=== PATIENT | male | born 1990 | race Asian ===

== ENCOUNTER 2024-10-10 06:10 | Outpatient (REF) | payer BC, SELFPAY ==
--- NOTE | ~2024-10-10 | US_ITS ---
EXAMINATION: US THYROID CLINICAL INFORMATION: Hypothyroidism COMPARISON: None available. TECHNIQUE: Linear transducer grayscale and color Doppler examination with attention to the region of the thyroid. FINDINGS: SIZE: Measurements of the thyroid lobes and nodules are given in sagittal, anteroposterior and transverse dimensions respectively. Right Thyroid Lobe: 4.9 x 1.7 x 2 cm, volume 8.7 mL. Parenchyma: The gland echotexture is heterogeneous. Thyroid vascularity is increased. Left Thyroid Lobe: 5.1 x 1.4 x 1.6 cm, volume 5.9 mL. Parenchyma: The gland echotexture is heterogeneous. Thyroid vascularity is increased. Isthmus: 0.3 cm in maximum AP dimension. Estimated total number of nodules greater than or equal to 1 cm: 0. [employer] Central Office nodules are described as follows: NODES: No lymphadenopathy is seen in the tissue surrounding the thyroid gland. 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 No ultrasound evidence of focal thyroid nodule. Electronically signed by: Latasha Morgan MD 10/12/2024 11:33 AM EST
--- OUTSIDE RECORDS SUMMARY | 2024-10-10 06:12 | XMS_ITS | Data Portability ---
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 All new labs and diagnostic xrays reviewed. Physical exam performed. Decision to continue FU made. 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 All new labs and diagnostic xrays reviewed. Physical exam performed. Decision to continue FU made. Diagnostic tests ordered [email or web address] Not available 09/05/2024 16:08:31 Plan of Treatment Reminders Order Date Submit Date Provider Last Modified By Organization Details Last Modified Time Details Appointments None recorded. Lab semen analysis 2023 [email or web address] [facility], [address] [place], [address], 15:19:27 Referral None recorded. Procedures None recorded. Surgeries None recorded. Imaging US, duplex, scrotum, limited 2023 024 [email or web address] Not available 16:18:10 Medication Orders None recorded. Patient TargetsNo targets recorded. Patient Instructions Encounter Date Encounter Id Patient Instructions Last Modified By Organization Details Last Modified Time 08/02/2024 [id number] varicocele repair: before your surgery [email or web address] Not available 08/02/2024 13:40:37 08/02/2024 [id number] varicocele repair: before your surgery [email or web address] Not available 08/02/2024 12:17:55 I spent a total of 45 minutes on the date of encounter, which included review of previous test results, reviewing previous history, performing medical appropriate exam, counseling the patient, ordering medications, communicating with the care team, documenting clinical information in the EMR, independently interpreting results. [email or web address] Not available 08/02/2024 12:55:08 09/05/2024 [id number] varicocele repair: before your surgery [email or web address] Not available 09/05/2024 16:08:32 I spent a total of 45 minutes on the date of encounter, which included review of previous test results, reviewing previous history, performing medical appropriate exam, counseling the patient, ordering medications, communicating with the care team, documenting clinical information in the EMR, independently interpreting results. [email or web address] Not available 09/05/2024 13:44:52 Reason for Referral None Reported. Results Created Date Observation Date Name Description Value Unit Range Abnormal Flag Note LastModifiedBy Organization Detail LastModifiedTime 08/02/20 24 07/15/2023 uatumn seth/nazanin yap tic resul t No observ ation record ed. [email or web address] Not Available 2023 11:43:29 Result Notes None recorded. 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 12:14:15 Primary male infertility 605295190 Active 2023 Bubba Cruz MD [address] [place] [address], [phone], [facility] 12:15:41 Varicocele 45004811 Active 2023 Bubba Cruz MD [address] [place] [address], [phone], [facility] 12:16:06 Problem Notes None recorded. Procedures Surgical History Date Name Laterality Status Provider Name and Address Organization Details Recorded Time 08/02/20 Ultrasound - Scrotum completed Bubba Cruz MD [address] [place] [address], [phone], [facility] 08/02/2024 13:40:19 Imaging Results Imaging Date Name Status LastModified by Organiz ation Details LastModified Time 07/15/2023 imaging/diag nostic result completed [email or web address] Information not available 08/12/2024 11:43:29 Procedure Notes None recorded. Medical Equipment None Reported. Allergies No known drug allergies Medications Name Sig Start Date Stop Date Status Note LastModified by Organization Details LastModified Time levothyroxine 25 mcg tablet active Not Available Not Availabl e Not Available lidocaine-hydro cortisone-aloe vera 2.8 %-0.55 % rectal gel 08/02 completed Not Available Not Available Not Available GaviLyte-G 236 gram-22.74 gram-6.74 gram-5.86 gram oral solution 08/02 completed Not Available Not Available Not Available Vitals Date Recorded Body height Body mass index (BMI) Body weight Provider Name and Address Organization Details Last Updated DateTime 08/02/2024 165.1 cm 0.3 kg/m2 907.18 [address] Dafne Luna [facility] 08/02/2024 11:26:41 Date Recorded Body height Body mass index (BMI) Body weight Provider Name and Address Organization Details Last Updated DateTime 09/05/2024 165.1 cm 24.8 kg/m2 27696.26 g Pamella Perla [facility] 09/05/2024 15:41:46 Social History Question Answer Notes LastModified by Organizat ion Details LastModified Time Tobacco Smoking Status Never Smoker Dafne garzon [facility] 08/02/2024 11:26:48 Do You Have An Advance Directive? No [email or web address] Information not available 08/02/2024 Are You Blind Or Do You Have Difficulty Seeing? No [email or web address] Information not available 08/02/2024 Is Blood Transfusion Acceptable In An Emergency? Yes [email or web address] Information not available 08/02/2024 What Is Your Level Of Caffeine Consumption? Occasional [email or web address] Information not available 08/02/2024 Are You Currently Employed? Yes [email or web address] Information not available 08/02/2024 Are You Deaf Or Do You Have Serious Difficulty Hearing? No [email or web address] Information not available 08/02/2024 What Type Of Diet Are You Following? 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 Right Information not available 08/02/2024 What Was The Date Of Your Most Recent Tobacco Screening? 09/05/2024 [email or web address] Information not available 09/05/2024 Do You Have Any Pets? No [email or web address] Information not available 08/02/2024 What Is Your Relationship Status? Information not available 08/02/2024 Do You Feel Stressed (tense, Restless, Nervous, Or Anxious, Or Unable To Sleep At Night)? [id number] Information not available 08/02/2024 Do You Use Any Illicit Or Recreational Drugs? No [email or web address] Information not available 08/02/2024 Do You Or Have You Ever Used Any Other Forms Of Tobacco Or Nicotine? No [email or web address] Information not available 08/02/2024 Sex: Unknown Functional Status Question Answer Note LastModified by Organizat ion Details LastModified Time Are you able to care for yourself? Yes [email or web address] Information not available 08/02/2024 What is your exercise level? Occasional Information not available 08/02/2024 Mental Status None recorded. Family History Nothing Reported. Medical History Condition Response Other Disease(s): Y Past Encounters Encounter ID Performer Location Encounter Start Date Encounter Closed Date Diagnosis/Indication Diagnosis SNOMED-CT Code Diagnosis ICD10 Code [id number] Royer Cruz MD [facility] [address] [address] 08/02/2024 11:06:08 08/02/2024 12:24:25 Primary male infertility 426739262 N46.9 Infertilit y due to azoospermia 174888296 N46.01 Varicocele 40264420 I86. 1 [id number] Royer Cruz MD [facility] [address] [address] 08/02/2024 12:29:31 08/02/2024 13:17:41 Primary male infertility 220925509 N46.9 Infertilit y due to azoospermia 873227676 N46.01 Varicocele 11512152 I86. 1 [id number] Royer Cruz MD [facility] [address] [address] 09/05/2024 15:31:27 09/05/2024 16:14:10 Primary male infertility 468589674 N46.9 Infertilit y due to azoospermia 999212782 N46.01 Varicocele 88983727 I86. 1 Health Concerns Section Related Observation LastModified by Organization Detai ls LastModified Time None Recorded Concern Status LastModified by Organization Details LastModified Time None Recorded Advance Directives Directive N: Payers Encounter Date Sequence Insurance Name Policy Number Policy Gray Covered Member ID Gray Member ID Guarantor Name 08/02/2024 1 [place] [id number] Sathish Munusamy [id number] Sathish Munusamy 08/02/2024 1 [place] [id number] Sathish Munusamy [id number] Sathish Munusamy 09/05/2024 1 [place] [id number] Sathish Munusamy [id number] Sathish Munusamy Notes Date Note Type Note Provider Name and Address Organization Details Recorded Time 4 text/htm l Patient has been 4 yrs, trying for2 yrs. Libido, Erection, Ejaculation and orgasm normal. Sexual frequency is normal. Patient is aware of Ovulation cycle. Denies Testalgia, scrotal trauma or surgery, Testicular urinary or sexual infection. No H/O varicocele, hydrocele or hernia. No Gynecomastia, excessive obesity. No use of external lubricants. No H/O Mumps, Chemotherapy or testis radiation exposure. Does not wear nylon underwears or sit in hot tub. has been evaluated with her boring mill set up operator. Her ovulation, tubal patency and hormonal status is normal. He has never used exogenous testosterone or body building steroids. No regular use of recreational drugs, smoking or excess alcohol intake. No familial fertility or neuroendocrinological issues. No previous treatment for infertility He works in [place] in [employer] in [employer] and done PHD in [facility] [employer] His semen analysis done in [place] last year showed azoospermia. The sperm volume was 1 cc liquefaction was normal and there was no evidence of any infection. His FSH and LH were normal and his testosterone was normal. Scrotal ultrasound showed mild ectasia of the epididymal tubules but otherwise the blood flow to the testis was normal Bubba Cruz MD [address] [place] [address], [phone], [facility] 08/02/2024 12:55:29 4 text/htm l Patient has been 4 yrs, trying for2 yrs. Libido, Erection, Ejaculation and orgasm normal. Sexual frequency is normal. Patient is aware of Ovulation cycle. Denies Testalgia, scrotal trauma or surgery, Testicular urinary or sexual infection. No H/O varicocele, hydrocele or hernia. No Gynecomastia, excessive obesity. No use of external lubricants. No H/O Mumps, Chemotherapy or testis radiation exposure. Does not wear nylon underwears or sit in hot tub. has been evaluated with her boring mill set up operator. Her ovulation, tubal patency and hormonal status is normal. He has never used exogenous testosterone or body building steroids. No regular use of recreational drugs, smoking or excess alcohol intake. No familial fertility or neuroendocrinological issues. No previous treatment for infertility He works in [place] in [employer] and done PHD in [employer] His semen analysis done in [place] last year showed azoospermia. The sperm volume was 1 cc liquefaction was normal and there was no evidence of any infection.Repeat semen analysis this year Also shows his aspermia His FSH and LH were normal and his testosterone was normal. Scrotal ultrasound showed mild ectasia of the epididymal tubules but otherwise the blood flow to the testis was normal Bubba Crzu MD [address] [place] [address], [phone], [facility]. 09/05/2024 16:09:01
--- OUTSIDE RECORDS SUMMARY | 2024-10-10 06:12 | XMS_ITS | Continuity of Care Document ---
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 All new labs and diagnostic xrays reviewed. Physical exam performed. Decision to continue FU made. Diagnostic tests ordered [email or web address] Not available 09/05/2024 16:08:31 Plan of Treatment Reminders Order Date Submit Date Provider Last Modified By Organization Details Last Modified Time Details Appointments None record ed. Lab None record ed. Referral None record ed. Procedures None record ed. Surgeries None record ed. Imaging None record ed. Medication Orders None record ed. Patient TargetsNo targets recorded. Patient Instructions Encounter Date Encounter Id Patient Instructions Last Modified By Organization Details Last Modified Time 09/05/2024 [id number] varicocele repair: before your surgery [email or web address] Not available 09/05/2024 16:08:32 I spent a total of 45 minutes on the date of encounter, which included review of previous test results, reviewing previous history, performing medical appropriate exam, counseling the patient, ordering medications, communicating with the care team, documenting clinical information in the EMR, independently interpreting results. [email or web address] Not available 09/05/2024 13:44:52 Reason for Referral None Reported. 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 Procedures Surgical History Date Name Laterality Status Provider Name and Address Organization Details Recorded Time 08/02/20 Ultrasound - Scrotum completed Bubba Cruz MD [address] [place] [address], [phone], [facility] 08/02/2024 13:40:19 Imaging Results None recorded. Procedure Notes None recorded. Medical Equipment None [...] Updated DateTime 09/05/2024 165.1 cm 24.8 kg/m2 11844.26 g Pamella Duncan [facility] 09/05/2024 15:41:46 Social History Question Answer Notes LastModified by Organizat ion Details LastModified Time Tobacco Smoking Status Never Smoker Dafne garzon [facility] 08/02/2024 11:26:48 Do You Have An Advance Directive? No [email or web address] Information not available 08/02/2024 Are You Blind Or Do You Have Difficulty Seeing? No Information not available 08/02/2024 Is Blood Transfusion Acceptable In An Emergency? Yes [email or web address] Information not available 08/02/2024 What Is Your Level Of Caffeine Consumption? Occasional [email or web address] Information not available 08/02/2024 Are You Currently Employed? Yes [email or web address] Information not available 08/02/2024 Are You Deaf Or Do You Have Serious Difficulty Hearing? No [email or web address] Information not available 08/02/2024 What Type Of Diet Are You Following? 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 Right [email or web address] Information not available 08/02/2024 What Was The Date Of Your Most Recent Tobacco Screening? 09/05/2024 [email or web address] Information not available 09/05/2024 Do You Have Any Pets? No Information not available 08/02/2024 What Is Your Relationship Status? [email or web address] Information not available 08/02/2024 Do You Feel Stressed (tense, Restless, Nervous, Or Anxious, Or Unable To Sleep At Night)? [id number] [email or web address] Information not available 08/02/2024 Do You Use Any Illicit Or Recreational Drugs? No [email or web address] Information not available 08/02/2024 Do You Or Have You Ever Used Any Other Forms Of Tobacco Or Nicotine? No Information not available 08/02/2024 Sex: Unknown Functional Status Question Answer Note LastModified by Organizat ion Details LastModified Time Are you able to care for yourself? Yes [email or web address] Information not available 08/02/2024 What is your exercise level? Occasional [email or web address] Information not available 08/02/2024 Mental Status None recorded. Family History Nothing Reported. Medical History Condition Response Other Disease(s): Y Past Encounters Encounter ID Performer Location Encounter Start Date Encounter Closed Date Diagnosis/Indication Diagnosis SNOMED-CT Code Diagnosis ICD10 Code [id number] Royer Cruz MD [facility] [address] [facility] [place] [address] [place] [address] 09/05/2024 15:31:27 09/05/2024 16:14:10 Primary male infertility 280067328 N46.9 Infertilit y due to azoospermia 146653377 N46.01 Varicocele 61380322 I86. 1 Health Concerns Section Related Observation LastModified by Organization Detai ls LastModified Time None Recorded Concern Status LastModified by Organization Details LastModified Time None Recorded Payers Encounter Date Sequence Insurance Name Policy Number Policy Gray Covered Member ID Gray Member ID Guarantor Name 09/05/2024 1 [place] [id number] Sathish Sims [id number] Sathish Sims Notes Date Note Type Note Provider Name [...] hot tub. has been evaluated with her scaling machine operator. Her ovulation, tubal patency and hormonal status is normal. He has never used exogenous testosterone or body building steroids. No regular use of recreational drugs, smoking or excess alcohol intake. No familial fertility or neuroendocrinological issues. 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 The sperm volume was 1 cc liquefaction was normal and there was no evidence of any infection.Repeat semen analysis this year Also shows his aspermia His FSH and LH were normal and his testosterone was normal. Scrotal ultrasound showed mild ectasia of the epididymal tubules but otherwise the blood flow to the testis was normal Bubba Cruz MD [address] [place] [address], [phone], [facility]. 09/05/2024 16:09:01
--- OUTSIDE RECORDS SUMMARY | 2024-10-10 06:12 | XMS_ITS | Continuity of Care Document ---
Author Organization [facility] [employer] [facility] Address [address] [facility] [address] [place] [address] Care Team Providers Care Phlebotomy Specialist Name Role Phone MIKI BAILEY Primary Care Provider BUBBA CRUZ Urologist [phone] Assessment No assessment recorded. Plan of Treatment Reminders Order Date Submit [...] By Organization Details Last Modified Time 08/02/2024 [id number] varicocele repair: before your surgery [email or web address] Not available 08/02/2024 13:40:37 Reason for Referral None Reported. Results Created Date Observation Date Name Description Value Unit Range Abnormal Flag Note LastModifiedBy Organization Detail LastModifiedTime 08/02/20 24 07/15/2023 imagi ng/di agnos tic resul t No observ ation record ed. Not Available 2023 11:43:29 Result Notes None recorded. 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 12:14:15 Primary male infertility 680761927 Active 2023 Bubba Cruz MD [address] [place], [address], [facility] 12:15:41 Varicocele 64891429 Active 2023 Bubba Cruz MD [address] [place], [address], [facility] 12:16:06 Problem Notes None recorded. Procedures Surgical History Date Name Laterality Status Provider Name and Address Organization Details Recorded Time 08/02/20 Ultrasound - Scrotum completed Bubba Cruz MD [address] [place] [address], [phone], [facility] 08/02/2024 13:40:19 Imaging Results None recorded. [...] cm 0.3 kg/m2 907.18 g Dafne Luna [facility] 08/02/2024 11:26:41 Social History Question Answer Notes LastModified by Organizat ion Details LastModified Time Tobacco Smoking Status Never Smoker Dafne Luna [facility] 08/02/2024 11:26:48 Do You Have An Advance Directive? No [email or web address] Information not available 08/02/2024 Are You Blind Or Do You Have Difficulty Seeing? No [email or web address] Information not available 08/02/2024 Is Blood Transfusion Acceptable In An Emergency? Yes [email or web address] Information not available 08/02/2024 What Is Your Level Of Caffeine Consumption? Occasional [email or web address] Information not available 08/02/2024 Are You Currently Employed? Yes [email or web address] Information not available 08/02/2024 Are You Deaf Or Do You Have Serious Difficulty Hearing? No [email or web address] Information not available 08/02/2024 What Type Of Diet Are You Following? 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 Right [email or web address] Information not available 08/02/2024 What Was The Date Of Your Most Recent Tobacco Screening? 09/05/2024 [email or web address] Information not available 09/05/2024 Do You Have Any Pets? No [email or web address] Information not available 08/02/2024 What Is Your Relationship Status? Information not available 08/02/2024 Do You Feel Stressed (tense, Restless, Nervous, Or Anxious, Or Unable To Sleep At Night)? [id number] [email or web address] Information not available 08/02/2024 Do You Use Any Illicit Or Recreational Drugs? No [email or web address] Information not available 08/02/2024 Do You Or Have You Ever Used Any Other Forms Of Tobacco Or Nicotine? No [email or web address] Information not available 08/02/2024 Sex: Unknown Functional Status Question Answer Note LastModified by Organizat ion Details LastModified Time Are you able to care for yourself? Yes Information not available 08/02/2024 What is your exercise level? Occasional Information not available 08/02/2024 Mental Status None recorded. Family History Nothing Reported. Medical History Condition Response Other Disease(s): Y Past Encounters Encounter ID Performer Location Encounter Start Date Encounter Closed Date Diagnosis/Indication Diagnosis SNOMED-CT Code Diagnosis ICD10 Code [id number] Royer Cruz MD [facility] [address] [address] 08/02/2024 11:06:08 08/02/2024 12:24:25 Primary male infertility 267246809 N46.9 Infertilit y due to azoospermia 491142560 N46.01 Varicocele 56101974 I86. 1 [id number] Royer Cruz MD [facility] [address] [address] 08/02/2024 12:29:31 08/02/2024 13:17:41 Primary male infertility 525409725 N46.9 Infertilit y due to azoospermia 210861612 N46.01 Varicocele 04901816 I86. 1 Health Concerns Section Related Observation LastModified by Organization Detai ls LastModified Time None Recorded Concern Status LastModified by Organization Details LastModified Time None Recorded Payers Encounter Date Sequence Insurance Name Policy Number Policy Gray Covered Member ID Gray Member ID Guarantor Name 08/02/2024 1 [place]: BERNARDO (PPO) [id number] [id number] Notes Date Note Type Note Provider Name [...] hot tub. has been evaluated with her senior accounting specialist. Her ovulation, tubal patency and hormonal status is normal. He has never used exogenous testosterone or body building steroids. No regular use of recreational drugs, smoking or excess alcohol intake. No familial fertility or neuroendocrinological issues. 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 The sperm volume was 1 cc liquefaction was normal and there was no evidence of any infection. His FSH and LH were normal and his testosterone was normal. Scrotal ultrasound showed mild ectasia of the epididymal tubules but otherwise the blood flow to the testis was normal Bubba Cruz MD [address] [place] [address], [phone], [facility]. 08/02/2024 12:55:29
--- OUTSIDE RECORDS SUMMARY | 2024-10-10 06:12 | XMS_ITS | Continuity of Care Document ---
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 All new labs and diagnostic xrays reviewed. Physical exam performed. Decision to continue FU made. Diagnostic tests ordered [email or web address] Not available 08/02/2024 12:15:41 Plan of Treatment Reminders Order Date Submit Date Provider Last Modified By Organization Details Last Modified Time Details Appointments None recorded. Lab semen analysis 2023 024 [email or web address] [facility], [address] [place], [address], 15:19:27 Referral None recorded. Procedures None recorded. Surgeries None recorded. Imaging US, duplex, scrotum, limited 2023 024 [email or web address] Not available 16:18:10 Medication Orders None recorded. Patient TargetsNo targets recorded. Patient Instructions Encounter Date Encounter Id Patient Instructions Last Modified By Organization Details Last Modified Time 08/02/2024 [id number] varicocele repair: before your surgery [email or web address] Not available 08/02/2024 12:17:55 I spent a total of 45 minutes on the date of encounter, which included review of previous test results, reviewing previous history, performing medical appropriate exam, counseling the patient, ordering medications, communicating with the care team, documenting clinical information in the EMR, independently interpreting results. [email or web address] Not available 08/02/2024 12:55:08 Reason for Referral None Reported. Results Created Date Observation Date Name Description Value Unit Range Abnormal Flag Note LastModifiedBy Organization Detail LastModifiedTime 08/02/20 24 07/15/2023 imagi ng/di proos tic resul t No observ ation record ed. [email or web address] Not Available 2023 11:43:29 Result Notes None recorded. 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 4 12:15:41 Varicocele 33957594 Active 2023 Bubba Cruz MD [address] [place] [address], [address], [facility] [employer] [facility] 12:16:06 Problem Notes None recorded. Procedures Surgical History Date Name Laterality Status Provider Name and Address Organization Details Recorded Time 08/02/20 24 Ultrasound - Scrotum completed Bubba Cruz MD [address] [place] [address], [phone], [facility] [employer] 08/02/2024 13:40:19 Imaging Results None recorded. Procedure [...] cm 0.3 kg/m2 907.18 g [facility] 08/02/2024 11:26:41 Social History Question Answer Notes LastModified by Organizat ion Details LastModified Time Tobacco Smoking Status Never Smoker Dafne Luna [facility] 08/02/2024 11:26:48 Do You Have An Advance Directive? No [email or web address] Information not available 08/02/2024 Are You Blind Or Do You Have Difficulty Seeing? No [email or web address] Information not available 08/02/2024 Is Blood Transfusion Acceptable In An Emergency? Yes [email or web address] Information not available 08/02/2024 What Is Your Level Of Caffeine Consumption? Occasional [email or web address] Information not available 08/02/2024 Are You Currently Employed? Yes [email or web address] Information not available 08/02/2024 Are You Deaf Or Do You Have Serious Difficulty Hearing? No [email or web address] Information not available 08/02/2024 What Type Of Diet Are You Following? 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 Right [email or web address] Information not available 08/02/2024 What Was The Date Of Your Most Recent Tobacco Screening? 09/05/2024 [email or web address] Information not available 09/05/2024 Do You Have Any Pets? No [email or web address] Information not available 08/02/2024 What Is Your Relationship Status? [email or web address] Information not available 08/02/2024 Do You Feel Stressed (tense, Restless, Nervous, Or Anxious, Or Unable To Sleep At Night)? [id number] Information not available 08/02/2024 Do You Use Any Illicit Or Recreational Drugs? No Information not available 08/02/2024 Do You Or Have You Ever Used Any Other Forms Of Tobacco Or Nicotine? No Information not available 08/02/2024 Sex: Unknown Functional Status Question Answer Note LastModified by Organizat ion Details LastModified Time Are you able to care for yourself? Yes [email or web address] Information not available 08/02/2024 What is your exercise level? Occasional [email or web address] Information not available 08/02/2024 Mental Status None recorded. Family History Nothing Reported. Medical History Condition Response Other Disease(s): Y Past Encounters Encounter ID Performer Location Encounter Start Date Encounter Closed Date Diagnosis/Indication Diagnosis SNOMED-CT Code Diagnosis ICD10 Code [id number] MD [facility] [address] [address] 08/02/2024 11:06:08 08/02/2024 12:24:25 Primary male infertility 126994673 N46.9 Infertilit y due to azoospermia 998026280 N46.01 Varicocele 99420844 I86. 1 [id number] MD [facility]IE [facility] [address] [address] 08/02/2024 12:29:31 08/02/2024 13:17:41 Primary male infertility 263916531 N46.9 Infertilit y due to azoospermia 477196647 N46.01 Varicocele 56261315 I86. 1 Health Concerns Section Related Observation LastModified by Organization Detai ls LastModified Time None Recorded Concern Status LastModified by Organization Details LastModified Time None Recorded Payers Encounter Date Sequence Insurance Name Policy Number Policy Gray Covered Member ID Gray Member ID Guarantor Name 08/02/2024 1 BERNARDO-[place]: BERNARDO (PPO) [id number] Sathish [facility] [id number] S[address] [facility] Notes Date Note Type Note Provider Name [...] hot tub. has been evaluated with her cloud administrator. Her ovulation, tubal patency and hormonal status is normal. He has never used exogenous testosterone or body building steroids. No regular use of recreational drugs, smoking or excess alcohol intake. No familial fertility or neuroendocrinological issues. 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 The sperm volume was 1 cc liquefaction was normal and there was no evidence of any infection. His FSH and LH were normal and his testosterone was normal. Scrotal ultrasound showed mild ectasia of the epididymal tubules but otherwise the blood flow to the testis was normal Bubba Cruz MD [address] [place] [address], [address], [facility]. 08/02/2024 12:55:29
== END 2024-10-10 06:11 | disposition home or self-care (01) ==
LOC: HO.UMASIMG 06:10
PROVIDERS: Visit Provider Internal Medicine
DX: E03.9 Hypothyroidism, unspecified (principal)
CPT/HCPCS: 76536